=== PATIENT | male | born 2000 | race African-American/Black ===

== ENCOUNTER 2021-03-18 22:11 | Emergency (ER) | payer OTHER ==
[2021-03-18 22:28] VITALS: BP 118/76; PULSE 81; TEMP 97; BMI 33.0
[2021-03-18] MEDS ORDERED: LIDOCAINE 5% TOPICAL PATCH TP ONE (22:57)
[2021-03-18] MEDS ORDERED: ACETAMINOPHEN 325 MG TABLET (FP) PO ONE (22:57)
[2021-03-18] MEDS ORDERED: CYCLOBENZAPRINE HCL 10 MG TABLET (FP) PO ONE (22:58)
[2021-03-18] MEDS ORDERED: ACETAMINOPHEN 325 MG TABLET (FP) ONE (23:02)
[2021-03-18] MEDS ORDERED: LIDOCAINE 5% TOPICAL PATCH ONE (23:02)
[2021-03-18] MEDS ORDERED: CYCLOBENZAPRINE HCL 10 MG TABLET (FP) ONE (23:03)
== END 2021-03-18 23:56 | disposition home or self-care (01) ==
LOC: JER 22:11
DX: M54.2 Cervicalgia (principal); V89.9XXA Person injured in unspecified vehicle accident, initial encounter; Y92.9 Unspecified place or not applicable
CPT/HCPCS: 99283-25